=== PATIENT | female | born 1940 | race Asian ===

== ENCOUNTER → 2025-07-14 | Outpatient (CLI) | payer MEDICARE, OTHER ==
[~2025-07-14] VITALS: Ht 152.4 cm; Wt 60.3 kg
[~2025-07-14] MED LIST: ALEN70TA65 PO; AMLO-257 PO; FLUT1BLS15 IH; GLYB5TAB5 PO; LANS30CA55 PO; LEVO125T4 PO; METF-444 PO
[2025-07-14 10:06] VITALS: BP 122/71; PULSE 68; RESP 17; TEMP 97.5; O2SAT 100
== END | disposition home or self-care (01) ==
LOC: SRCNTR 09:53
PROVIDERS: ATTEND Internal Medicine Pulmonary Disease
DX: J45.901 Unspecified asthma with (acute) exacerbation (principal); K22.9 Disease of esophagus, unspecified; I26.99 Other pulmonary embolism without acute cor pulmonale; K44.9 Diaphragmatic hernia without obstruction or gangrene; I12.9 Hypertensive chronic kidney disease with stage 1 through stage 4 chronic kidney disease, or unspecified chronic kidney disease; E11.22 Type 2 diabetes mellitus with diabetic chronic kidney disease; N18.9 Chronic kidney disease, unspecified; C90.00 Multiple myeloma not having achieved remission; E03.9 Hypothyroidism, unspecified; Z79.899 Other long term (current) drug therapy; Z82.49 Family history of ischemic heart disease and other diseases of the circulatory system; Z83.3 Family history of diabetes mellitus; Z86.711 Personal history of pulmonary embolism; Z86.718 Personal history of other venous thrombosis and embolism; Z87.440 Personal history of urinary (tract) infections; Z88.5 Allergy status to narcotic agent; Z90.49 Acquired absence of other specified parts of digestive tract; Z90.711 Acquired absence of uterus with remaining cervical stump; Z90.89 Acquired absence of other organs; Z94.81 Bone marrow transplant status; Z94.84 Stem cells transplant status
CPT/HCPCS: G0463